=== PATIENT | female | born 1995 | race African-American/Black ===

== ENCOUNTER 2020-10-10 00:06 | Inpatient (IN) ==
[2020-10-10] MEDS ORDERED: BUTORPHANOL 2 MG/ML VIAL IV PRN (00:21)
[2020-10-10] MEDS ORDERED: LACTATED RINGERS 1,000 ML IV ONE (00:21)
[2020-10-10] MEDS ORDERED: ONDANSETRON 4 MG/2 ML VIAL IV PRN ×2 (00:21→07:29)
[2020-10-10 00:34] LABS: Basophils % 0.3 % (0.0-0.8); Eosinophils # 0.1 10*3/uL (0.0-0.87); Eosinophils % 0.5 % (0.00-10.9); Hematocrit 35.5 VOL% (35.7-47.0); Hemoglobin 11.8 GM/DL (12.0-16.0); Immature Granulocytes Absolute 0.28 #; Lymphocytes # 2.5 10*3/uL (1.4-4.0); Lymphocytes % 17.7 % (21.3-54.2); Mean Corpuscular HGB Conc 33.2 GM/DL (32-36); Mean Corpuscular Volume 87.2 FL (87-102); Mean Platelet Volume 10.7 FL (9.6-12.0); Neutrophils % 71.5 % (38.7-73.9); Platelet Count 279 T/CUMM (130-400); Red Blood Count 4.07 MC/CUMM (3.8-5.5); Red Cell Distribution Width 12.5 % (9.3-17.3); White Blood Count 13.9 T/CUMM (4-12)
[2020-10-10] MEDS ORDERED: ONDANSETRON 4 MG/2 ML VIAL IV ONE (00:50)
[2020-10-10] MEDS ORDERED: diphenhydrAMINE 50 MG/1 ML VIAL IV PRN ×2 (00:50)
[2020-10-10] MEDS ORDERED: hydrOXYzine HCL 25 MG/1 ML VIAL IM PRN (00:50)
[2020-10-10] MEDS ORDERED: ePHEDrine 50 MG/ML VIAL IV PRN (00:50)
[2020-10-10] MEDS ORDERED: NALOXONE 0.4 MG/ML VIAL IV PRN (00:50)
[2020-10-10] MEDS ORDERED: FAMOTIDINE 20 MG/2 ML VIAL IV ONE (00:50)
[2020-10-10] MEDS ORDERED: CITRIC ACID/SODIUM CITRATE 30 ML UDCUP PO ONE (00:50)
[2020-10-10] MEDS ORDERED: PROMETHAZINE 25 MG/1 ML VIAL IM ONE (00:50)
[2020-10-10] MEDS ORDERED: fentaNYL 2 MCG/ROPIV 0.2% EPID 100 ML EPIDURAL SCH (01:00)
[2020-10-10 01:06] LABS: Alanine Aminotransferase 25 U/L (13-56); Albumin 2.9 G/DL (3.4-5.0); Alkaline Phosphatase 153 U/L (45-117); Aspartate Amino Transferase 20 U/L (0-37); Bilirubin,Total < 0.39 MG/DL (0.2-1.0); Blood Urea Nitrogen 8 MG/DL (7-18); Calcium 9.8 MG/DL (8.5-10.1); Estimated Glom Filtration Rate 163 ML/MIN; Glucose 94 MG/DL (74-106); Osmolality,Calculated 267.1 MOS/KG (273-304); Total Protein 7.8 G/DL (6.4-8.3)
[2020-10-10] MEDS: LACTATED RINGERS 1,000 ML IV SCH ×2 (01:07→06:44)
[2020-10-10] MEDS: CLINDAMYCIN INJ 900 MG in PREMIX 1 EACH IV SCH ×2 (01:08→06:42)
[2020-10-10] MEDS ORDERED: MEPERIDINE 50 MG/1 ML VIAL IV PRN (01:11)
[2020-10-10 04:29] LABS: HIV Antigen/Antibody Result Nonreactive (Nonreactive); Hepatitis B Surface Ag Quant < 0.10 Index; Hepatitis B Surface Ag Result Negative (Negative)
[2020-10-10] MEDS ORDERED: LIDOCAINE 1% 50 ML VIAL ONE (05:37)
[2020-10-10] MEDS ORDERED: OXYTOCIN/LR 20 UNIT/1,000 ML BAG IV SCH (06:00)
[2020-10-10] MEDS ORDERED: MORPHINE 10 MG/10 ML VIAL ONE (06:45)
[2020-10-10] MEDS ORDERED: ONDANSETRON 4 MG/2 ML VIAL ONE (06:46)
[2020-10-10] MEDS ORDERED: PHENYLEPHRINE 1 MG/10 ML SYRINGE IV ONE (06:47)
[2020-10-10] MEDS ORDERED: BUPIVACAINE SPINAL 0.75% 2 ML AMP SPINAL ONE (06:48)
[2020-10-10] MEDS ORDERED: miSOPROStoL 200 MCG TABLET ONE (07:11)
[2020-10-10] MEDS ORDERED: CARBOPROST TROMETHAMINE 250 MCG/ML AMP IM ONE (07:12)
[2020-10-10] MEDS ORDERED: METHYLERGONOVINE 0.2 MG/1 ML AMP ONE (07:12)
[2020-10-10] MEDS ORDERED: TRANEXAMIC ACID 1,000 MG/10 ML VIAL ONE (07:12)
[2020-10-10] MEDS ORDERED: SODIUM CHLORIDE 0.9% 0 ML IV ONE (07:13)
[2020-10-10 07:24] LABS: Bacteria,Urine Many /HPF (Few); Bilirubin,Urine Negative (Negative); Blood, Urine Small mg/dL (Negative); Glucose,Urine (UA) Negative (Negative); Ketones,Urine 20 mg/dL (Negative); Mucus,Urine Occasional /LPF (Occasional); Nitrite,Urine Negative (Negative); Protein,Urine Negative; RBC,Urine 29 /HPF (0-4); Squamous Epithelial Cell,Urine Occasional /HPF (0-10); Urine Appearance CLEAR (Clear); Urine Color Yellow (Yellow); Urine Specific Gravity 1.019 (1.001-1.035); Urine Urobilinogen < 2.0 EU/DL (0.2-1.0); WBC,Urine 6 /HPF (0-6)
[2020-10-10] MEDS ORDERED: HYDROCORTISONE 2.5% RECTAL CREAM 30 GM TUBE TOP PRN (07:29)
[2020-10-10] MEDS ORDERED: LANOLIN 50% CREAM 0.3 OZ TUBE TOP PRN (07:29)
[2020-10-10] MEDS ORDERED: BENZOCAINE 20%/MENTHOL 0.5% SPRAY 56 GM CAN TOP PRN (07:29)
[2020-10-10] MEDS ORDERED: MEASLES/MUMPS/RUBELLA VACCINE 0.5 ML VIAL SUBCUT ONE (07:29)
[2020-10-10] MEDS ORDERED: BISACODYL 10 MG SUPP RECTAL PRN (07:29)
[2020-10-10] MEDS ORDERED: oxyCODONE/ACETAMINOPHEN 5-325 MG TABLET PO PRN (07:29)
[2020-10-10] MEDS ORDERED: ACETAMINOPHEN 325 MG TABLET PO PRN (07:29)
[2020-10-10] MEDS ORDERED: DIPH/TET/ACEL PERT BOOSTER VACCINE 0.5 ML VIAL IM ONE (07:29)
[2020-10-10] MEDS ORDERED: WITCH HAZEL PADS 100/JAR TOP PRN (07:29)
[2020-10-10] MEDS ORDERED: RHO(D) IMMUNE GLOBULIN 300 MCG SYRINGE IM ONE (07:29)
[2020-10-10] MEDS ORDERED: OXYTOCIN/LR 20 UNIT/1,000 ML BAG IV ONE (07:29)
[2020-10-10 07:40] LABS: Cord Venous Blood PCO2 41.9 MMHG; Cord Venous Blood PO2 33.6
[2020-10-10] MEDS: IBUPROFEN 800 MG TABLET PO PRN ×2 (07:59→18:20)
[2020-10-10] MEDS: DOCUSATE SODIUM 100 MG CAPSULE PO SCH ×2 (16:40→20:27)
[2020-10-10] MEDS: oxyCODONE/ACETAMINOPHEN 5-325 MG TABLET PO PRN (22:03)
[2020-10-11 05:33] LABS: Basophils % 0.3 % (0.0-0.8); Eosinophils # 0.1 10*3/uL (0.0-0.87); Eosinophils % 0.7 % (0.00-10.9); Hematocrit 29.6 VOL% (35.7-47.0); Hemoglobin 9.9 GM/DL (12.0-16.0); Immature Granulocytes % 1.6 %; Immature Granulocytes Absolute 0.25 #; Lymphocytes # 2.9 10*3/uL (1.4-4.0); Lymphocytes % 18.3 % (21.3-54.2); Mean Corpuscular HGB Conc 33.4 GM/DL (32-36); Mean Corpuscular Volume 88.1 FL (87-102); Mean Platelet Volume 10.6 FL (9.6-12.0); Monocytes % 6.5 % (1.7-12.7); Neutrophils % 72.6 % (38.7-73.9); Platelet Count 235 T/CUMM (130-400); Red Blood Count 3.36 MC/CUMM (3.8-5.5); Red Cell Distribution Width 12.7 % (9.3-17.3); White Blood Count 15.7 T/CUMM (4-12)
[2020-10-11] MEDS: DOCUSATE SODIUM 100 MG CAPSULE PO SCH ×2 (08:12→21:07)
[2020-10-11] MEDS: IBUPROFEN 800 MG TABLET PO PRN (15:20)
[2020-10-11] MEDS: oxyCODONE/ACETAMINOPHEN 5-325 MG TABLET PO PRN (15:21)
[2020-10-12] MEDS: oxyCODONE/ACETAMINOPHEN 5-325 MG TABLET PO PRN ×2 (00:04→12:21)
[2020-10-12 07:48] VITALS: BP 102/66
[2020-10-12] MEDS: DOCUSATE SODIUM 100 MG CAPSULE PO SCH (07:51)
[2020-10-12] MEDS ORDERED: NITROFURANTOIN MACRO/MONO 100 MG CAPSULE PO SCH (10:30)
[2020-10-12] MEDS: IBUPROFEN 800 MG TABLET PO PRN (12:21)
== END 2020-10-12 13:10 | disposition home or self-care (01) | DRG 560 ==
LOC: N.LDOUT 00:06 → N.LD 00:09 → N.OB 11:05
PROVIDERS: ADMIT Obstetrics & Gynecology; ATTEND Obstetrics & Gynecology